=== PATIENT | male | born 1995 ===

== ENCOUNTER 2017-01-24 18:49 | Emergency (ER) | payer SELFPAY ==
[2017-01-24 18:54] VITALS: BP 131/87; PULSE 89; RESP 20; TEMP 98.1; O2SAT 100
--- NOTE | 2017-01-24 19:29 | C.PDOC ---
History Of Present Illness 21 year old male presents to the ED for suture removal. Patient had sutures placed to his frontal scalp region 9 days ago. Patient states his symptoms are improving and denies fever, chills, discharge. Time Seen by Provider: 01/24/17 19:03 Chief Complaint (Nursing): Suture/Staple Removal History Per: Patient History/Exam Limitations: no limitations Onset/Duration Of Symptoms: Days Ago (9) Current Symptoms Are (Timing): Still Present Quality Of Symptoms: denies: Painful, Itching, Swollen, Draining Past Medical History Reviewed: Historical Data, Nursing Documentation, Vital Signs Vital Signs: Last Vital Signs Temp 98.1 F 01/24/17 18:52 Pulse 89 01/24/17 18:52 Resp 20 01/24/17 19:46 BP 131/87 01/24/17 18:52 Pulse Ox 100 01/24/17 21:19 - Medical History PMH: No Chronic Diseases Surgical History: No Surg Hx Family History: States: Unknown Family Hx - Social History Hx Alcohol Use: No Hx Substance Use: No - Immunization History Hx Tetanus Toxoid Vaccination: Yes Hx Influenza Vaccination: Yes Hx Pneumococcal Vaccination: No Review Of Systems Except As Marked, All Systems Reviewed And Found Negative. Constitutional: Negative for: Fever, Chills Skin: Positive for: Other (suture removal ) Physical Exam - Physical Exam Appears: Non-toxic, No Acute Distress Skin: Normal Color, Warm, Dry Head: Other (two sutures intact on frontal scalp region. no erythema, discharge or signs of infection ) Eye(s): bilateral: Normal Inspection, PERRL, EOMI Oral Mucosa: Moist Neck: Normal ROM Extremity: Normal ROM Neurological/Psych: Oriented x3, Normal Speech, Normal Cognition ED Course And Treatment O2 Sat by Pulse Oximetry: 100 (on RA) Pulse Ox Interpretation: Normal Medical Decision Making Medical Decision Making: Two running sutures removed by me. The wound was cleansed with sterile saline. After removal of sutures wound slightly dehiscence. Skin glue and 2 steri stripes applied. Disposition - Disposition Referrals: [facility] [Outside] Disposition: HOME/ ROUTINE Disposition Time: 19:29 Condition: GOOD Additional Instructions: Keep the wound dry and clean. Steri strips will fall off in 3-5 days. return if worsened. Instructions: Stitches Removal (ED) Forms: [employer] (Russian) - Clinical Impression Clinical Impression: Removal of suture, Dehiscence of traumatic injury wound repair - PA / CUSTOMER ASSOCIATE / Resident Statement MD/DO has reviewed & agrees with the documentation as recorded. - Scribe Statement The provider has reviewed the documentation as recorded by the Scribe (Darlnig Garces) All medical record entries made by the Scribe were at my direction and personally dictated by me. I have reviewed the chart and agree that the record accurately reflects my personal performance of the history, physical exam, medical decision making, and the department course for this patient. I have also personally directed, reviewed, and agree with the discharge instructions and disposition.
== END 2017-01-24 19:46 | disposition home or self-care (01) ==
LOC: C.ER 18:49
DX: Z48.02 Encounter for removal of sutures (principal); T81.33XA Disruption of traumatic injury wound repair, initial encounter; Y83.8 Other surgical procedures as the cause of abnormal reaction of the patient, or of later complication, without mention of misadventure at the time of the procedure

== ENCOUNTER 2017-10-05 08:07 | Emergency (ER) | payer MEDICAID, OTHER ==
[2017-10-05 08:10] VITALS: BP 127/78; PULSE 73; RESP 20; TEMP 97.7; O2SAT 100
--- NOTE | 2017-10-05 08:36 | C.PDOC ---
History Of Present Illness 21 year old male patient presents to the ER with c/o lower right gum and tooth pain for x5 days. Patient reports he went to the dentist for treatment but is unable to continue due to financial issues. Patient denies fever and chills. Patient notes he takes ibuprofen for the pain. Time Seen by Provider: 10/05/17 08:17 Chief Complaint (Nursing): Dental Pain History Per: Patient History/Exam Limitations: no limitations Onset/Duration Of Symptoms: Days (x5) Current Symptoms Are (Timing): Still Present Past Medical History Reviewed: Historical Data, Nursing Documentation, Vital Signs Vital Signs: Last Vital Signs Temp 97.7 F 10/05/17 08:11 Pulse 73 10/05/17 08:11 Resp 20 10/05/17 08:11 BP 127/78 10/05/17 08:11 Pulse Ox 100 10/06/17 09:56 Family History: States: Unknown Family Hx - Social History Hx Alcohol Use: No Hx Substance Use: No - Immunization History Hx Tetanus Toxoid Vaccination: Yes Hx Influenza Vaccination: Yes Hx Pneumococcal Vaccination: No Review Of Systems Constitutional: Negative for: Fever, Chills Musculoskeletal: Positive for: Other (lower right gum and tooth pain) Physical Exam - Physical Exam Appears: Well, No Acute Distress Skin: Warm, Dry Head: Atraumatic, Normacephalic, No Swelling (face) Oral Mucosa: Moist Tongue: Normal Appearing Lips: Normal Appearing Teeth: No Tender To Palpation (teeth ), Other (multiple teeth with fillings) Gingiva: Abscess (0.5 cm round tender abscess adjacent to second to last lower right molar on buccal surface) Throat: Normal Neck: Supple Neurological/Psych: Oriented x3, Normal Speech, Normal Cognition ED Course And Treatment O2 Sat by Pulse Oximetry: 100 (RA) Pulse Ox Interpretation: Normal Medical Decision Making Medical Decision Making: Impression: right lower gum and tooth pain Reassess: Patient resting comfortably. Patient is instructed to f/u with dental clinic that has been provided for patient for further dental evaluation. Disposition Counseled Patient/Family Regarding: Diagnosis, Need For Followup, Rx Given - Disposition Referrals: [facility] [Outside] [facility] [Outside] Disposition: HOME/ ROUTINE Disposition Time: 08:47 Condition: GOOD Additional Instructions: Please take antibiotics as prescribed. Continue taking ibuprofen for pain. Follow up next week with a dentist- call [facility] for help finding a dentiist; [facility] should have a dental clinic., [facility] should have dental clinic; . Return to ER for any fever, facial swelling, worse swelling in mouth causing difficulty swallowing or any other concerns Prescriptions: Amoxicillin [Amoxil 500 mg Cap] 500 mg PO TID #21 cap Instructions: Tooth Abscess (DC) Forms: [facility] (Czech), General Discharge Instructions - Clinical Impression Clinical Impression: Dental abscess - PA / RAYON CONER / Resident Statement MD/ has reviewed & agrees with the documentation as recorded. - Scribe Statement The provider has reviewed the documentation as recorded by the Harjit Mckee Do All medical record entries made by the Harjit were at my direction and personally dictated by me. I have reviewed the chart and agree that the record accurately reflects my personal performance of the history, physical exam, medical decision making, and the department course for this patient. I have also personally directed, reviewed, and agree with the discharge instructions and disposition.
== END 2017-10-05 09:24 | disposition home or self-care (01) ==
LOC: C.ER 08:07
DX: K04.7 Periapical abscess without sinus (principal)